=== PATIENT | male | born 1985 | race African-American/Black ===

== ENCOUNTER 2021-08-30 04:36 | Emergency (ER) | payer MEDICAID ==
[~2021-08-30] VITALS: Ht 170.2 cm; Wt 77.0 kg
[2021-08-30 04:44] VITALS: BP 182/90
[2021-08-30] MEDS ORDERED: PREDNISONE 20MG TABLET PO ONE (05:00)
[2021-08-30] MEDS ORDERED: ALBUTEROL 6.7GM HFA INHALER ORI ONE (05:00)
[2021-08-30] MEDS ORDERED: ALBUTEROL (0.083%) 2.5MG/3ML NEB HHN ONE (05:00)
[2021-08-30] MEDS ORDERED: P20 PO (05:17)
== END 2021-08-30 05:29 | disposition home or self-care (01) ==
LOC: ER 04:36
DX: J45.901 Unspecified asthma with (acute) exacerbation (principal); Z88.0 Allergy status to penicillin
CPT/HCPCS: 93005; 94640; 99283; J7512; Z7610

== ENCOUNTER 2021-11-20 09:08 | Emergency (ER) | payer MEDICAID ==
[~2021-11-20] VITALS: Ht 175.3 cm; Wt 88.5 kg
[~2021-11-20 09:08] MED LIST: P20 PO
[2021-11-20 09:14] VITALS: BP 142/90
[2021-11-20] MEDS ORDERED: ALBU6.7H9 INH (09:47)
== END 2021-11-20 10:06 | disposition home or self-care (01) ==
LOC: ER 09:08
DX: Z76.0 Encounter for issue of repeat prescription (principal); J45.909 Unspecified asthma, uncomplicated; Z88.0 Allergy status to penicillin; Z98.890 Other specified postprocedural states
CPT/HCPCS: 99281; 99283

== ENCOUNTER 2022-04-25 02:56 | Emergency (ER) | payer MEDICAID ==
[~2022-04-25] VITALS: Ht 172.7 cm; Wt 63.0 kg
[~2022-04-25 02:56] MED LIST changes: +ALBU6.7H9 INH
[2022-04-25 02:58] VITALS: BP 160/96
[2022-04-25] MEDS ORDERED: PREDNISONE 20MG TABLET PO STA (03:43)
[2022-04-25] MEDS ORDERED: ALBUTEROL (0.083%) 2.5MG/3ML NEB HHN STA (03:43)
[2022-04-25] MEDS ORDERED: IPRATROPIUM BROMIDE (0.02%) 0.5MG/2.5ML NEB HHN STA (03:43)
[2022-04-25] MEDS ORDERED: P20 MT (03:45)
[2022-04-25] MEDS ORDERED: ALBU90AE INH (03:45)
== END 2022-04-25 04:18 | disposition home or self-care (01) ==
LOC: ER 03:04
DX: J45.901 Unspecified asthma with (acute) exacerbation (principal); F17.290 Nicotine dependence, other tobacco product, uncomplicated; Z88.0 Allergy status to penicillin; Z98.890 Other specified postprocedural states
CPT/HCPCS: 93005; 99283; 99406; J7512; Z7610

== ENCOUNTER 2022-05-26 21:44 | Emergency (ER) | payer MEDICAID ==
[~2022-05-26] VITALS: Ht 175.3 cm; Wt 89.0 kg
[~2022-05-26 21:44] MED LIST changes: +ALBU6.7H3 INH; -ALBU6.7H9 INH; +ALBU90AE INH; +P20 MT
[2022-05-26 21:49] VITALS: BP 114/78
[2022-05-27] MEDS ORDERED: IPRATROPIUM/ALBUTEROL 0.5-3(2.5)MG/3ML NEB HHN ONE (01:15)
[2022-05-27] MEDS ORDERED: DEXAMETHASONE 10 MG/ML VIAL IM ONE (01:15)
[2022-05-27] MEDS ORDERED: ALBU6.7H3 INH (01:55)
[2022-05-27] MEDS ORDERED: ALBU2.5V13 NEB (01:55)
== END 2022-05-27 02:08 | disposition home or self-care (01) ==
LOC: ER 21:44
DX: J45.901 Unspecified asthma with (acute) exacerbation (principal); Z88.0 Allergy status to penicillin
CPT/HCPCS: 94640; 96372; 99283; J1100; Z7610

== ENCOUNTER 2022-08-31 16:47 | Emergency (ER) | payer MEDICAID ==
[~2022-08-31] VITALS: Ht 175.3 cm; Wt 70.0 kg
[~2022-08-31 16:47] MED LIST changes: +ALBU2.5V13 NEB; +FLUT1DIS2 INH
[2022-08-31 16:51] VITALS: BP 160/76
[2022-08-31] MEDS ORDERED: IPRATROPIUM BROMIDE (0.02%) 0.5MG/2.5ML NEB HHN STA (17:07)
[2022-08-31] MEDS ORDERED: PREDNISONE 20MG TABLET PO STA (17:07)
[2022-08-31] MEDS ORDERED: ALBUTEROL (0.083%) 2.5MG/3ML NEB HHN STA (17:07)
[2022-08-31] MEDS ORDERED: ALBUTEROL (0.083%) 2.5MG/3ML NEB HHN ONE (18:45)
[2022-08-31] MEDS ORDERED: P50 MT (20:18)
[2022-08-31] MEDS ORDERED: ALBU6.7H3 INH (20:18)
[2022-08-31] MEDS ORDERED: ALBUTEROL 6.7GM HFA INHALER ORI ONE (20:30)
== END 2022-08-31 21:01 | disposition home or self-care (01) ==
LOC: ER 18:40
DX: J45.901 Unspecified asthma with (acute) exacerbation (principal); F12.10 Cannabis abuse, uncomplicated; Z88.0 Allergy status to penicillin
CPT/HCPCS: 71045; 93005; 94640; 99284; J7512; Z7610